=== PATIENT | female | born 1990 | race Caucasian/White ===

== ENCOUNTER 2021-11-02 17:12 | Emergency (ER) | payer MEDICAID ==
[~2021-11-02] VITALS: Ht 167.6 cm; Wt 102.3 kg
[~2021-11-02 17:12] MED LIST: LEXAPRO 10MG10 MG PO; MOTRIN 800800 MG/TAB PO; PERCOCET 325 MG1 TA2 PO; PRENATAL VITAMI1 TA5 PO; ZOFRAN 4MG T4 MG/TAB PO
[2021-11-02 17:23] VITALS: TEMP 98.2
[2021-11-02 18:01] LABS: COLLECTION METHOD CLEAN CATCH
[2021-11-02 18:06] LABS: BASO % 0.4 % (0.0-2.0); EOS % 0.1 % (0.0-4.0); GRAN # 5.2 K/mm3 (1.4-6.5); GRAN % 73.2 % (42.2-75.2); HEMATOCRIT 41.8 % (37.0-47.0); HEMOGLOBIN 14.7 g/dl (12.5-16.0); LYMPH # 1.4 K/mm3 (1.2-3.4); LYMPH % 20.1 % (20.0-51.0); MEAN CELL VOLUME 88 fl (80.0-100.0); MEAN CORPUSCULAR HEMOGLOBIN 31 pg (27-31); MEAN CORPUSCULAR HGB CONC 35 g/dl (33.0-37.0); MEAN PLATELET VOLUME 9.2 fl (7.4-10.4); MONO # 0.4 K/mm3 (0.1-0.6); MONO % 6.1 % (1.7-9.3); PLATELET COUNT 306 K/mm3 (130-400); RED BLOOD COUNT 4.74 M/mm3 (4.10-5.30)
[2021-11-02 18:09] LABS: MUCOUS Present (NOT PRESENT); PH 6 (5-8); URINE APPEARANCE Hazy (CLEAR/HAZY); URINE BACTERIA Rare /hpf (NONE SEEN); URINE BILIRUBIN Negative (NEGATIVE); URINE BLOOD Negative (NEGATIVE); URINE COLOR Yellow (YELLOW); URINE GLUCOSE Negative (NEGATIVE); URINE KETONE Trace (NEGATIVE); URINE LEUKOCYTE ESTERASE Negative (NEGATIVE); URINE NITRATE Negative (NEGATIVE); URINE PROTEIN(semi-quant) 1+ (NEGATIVE); URINE RBC 0-2 /hpf (0-2); URINE UROBILINOGEN Negative (NEGATIVE)
[2021-11-02] MEDS ORDERED: ATARAX50 MG PO (18:14)
[2021-11-02] MEDS ORDERED: WELLBUTRIN XL300 M1 PO (18:14)
[2021-11-02] MEDS ORDERED: STRATTERA 40MG40 MG PO (18:14)
[2021-11-02] MEDS ORDERED: VICOPROFEN 7.51 TAB PO (18:15)
[2021-11-02] MEDS ORDERED: VRAYLAR1.5 MG PO (18:15)
[2021-11-02] MEDS ORDERED: LUNESTA3 MG PO (18:15)
[2021-11-02] MEDS ORDERED: ERGOCALCIFER50000 IU PO (18:15)
[2021-11-02 18:23] LABS: ALBUMIN 3.8 gm/dL (3.5-5.0); BILIRUBIN,TOTAL 0.5 mg/dL (0.2-1.2); C-REACTIVE PROTEIN 1.5 mg/dL (0.00-0.50); CALCIUM 9.4 mg/dL (8.4-10.2); CREATININE, serum 0.74 mg/dL (0.57-1.11); POTASSIUM 4.1 mmol/L (3.5-4.5); TOTAL PROTEIN 7.8 gm/dL (6.2-8.1)
[2021-11-02] MEDS ORDERED: CARAFATE 1GM1 G PO (19:40)
[2021-11-02] MEDS ORDERED: PROTONIX 40MG T40 MG PO (19:40)
[2021-11-02 20:02] VITALS: BP 130/89; PULSE 87
== END 2021-11-02 20:04 | disposition home or self-care (01) ==
LOC: COL.ER 17:12
PROVIDERS: Nurse Practitioner
DX: R10.13 Epigastric pain (principal); R11.2 Nausea with vomiting, unspecified; F17.290 Nicotine dependence, other tobacco product, uncomplicated; Z90.49 Acquired absence of other specified parts of digestive tract; Z32.02 Encounter for pregnancy test, result negative
CPT/HCPCS: J2405; J2550; J7030